=== PATIENT | female | born 1970 | race Caucasian/White ===

== ENCOUNTER 2021-04-13 20:00 | Emergency (ER) | payer SELFPAY ==
[~2021-04-13] VITALS: Ht 165.1 cm; Wt 64.0 kg
[2021-04-13 20:42] VITALS: BP 120/70
[2021-04-14] MEDS ORDERED: TOPUD PO (07:03)
== END 2021-04-13 23:34 | disposition left against medical advice (07) ==
LOC: ER 20:00
DX: Z53.21 Procedure and treatment not carried out due to patient leaving prior to being seen by health care provider (principal)

== ENCOUNTER 2021-04-14 03:35 | Emergency (ER) | payer SELFPAY ==
[~2021-04-14] VITALS: Ht 165.1 cm; Wt 64.0 kg
[2021-04-14] MEDS ORDERED: TOPUD PO (07:03)
[2021-04-14 07:49] VITALS: BP 114/71
== END 2021-04-14 07:50 | disposition home or self-care (01) ==
LOC: ER 03:35
DX: U07.1 COVID-19 (principal)
CPT/HCPCS: 71045; 99283